=== PATIENT | male | born 1960 | race Caucasian/White ===

== ENCOUNTER 2020-03-23 04:35 | Emergency (ER) | payer BC ==
[~2020-03-23] VITALS: Ht 165.1 cm; Wt 80.3 kg
[2020-03-23 04:43] VITALS: BP 126/72
--- NOTE | 2020-03-23 04:49 | NUR ---
PT NEGATIVE COVID SCREE. PT WEARING MASK. TRIAGE NURSE WEARING PPE.
--- NOTE | 2020-03-23 04:49 | NUR ---
PT TAKEN TO BED 4
--- NOTE | 2020-03-23 04:52 | NUR ---
DR. HERNANDEZ AT BEDSIDE.
[2020-03-23] MEDS: HYDROcodone/APAP 5/325 MG 1 TAB TAB PO ONE (05:05)
[2020-03-23] MEDS: KETOROLAC 30 MG/ML VIAL IM ONE (05:07)
--- NOTE | 2020-03-23 05:10 | NUR ---
DX BY 5/2 WITH GOUT TO L BIG TOE AND PRESCRIBED MEDS, PAIN GOT WORSE LAST NIGHT AND IT HAS TRAVELED TO HIS ANKLE AND LOWER LEFT. UNABLE TO PUT PRESSURE ON LEFT FOOT. LEFT BIG TOE AND FOOT RED, SWOLLEN, AND WARM TO TOUCH. [facility] MED HX - GOUT, DIABETES (STATES NO LONGER DIABETIC) MEDS - PREDNISONE, INDOMETACIN, KEFLEX
[2020-03-23 05:25] VITALS: BP 126/72
--- NOTE | 2020-03-23 05:25 | NUR ---
Patient discharged with v/s stable. Written and verbal after care instructions given and explained. Patient alert, oriented and verbalized understanding of instructions. Ambulating with crutches. All questions addressed prior to discharge. ID band removed. Patient advised to follow up with PMD. Rx of naprosyn and norco given. Patient educated on indication of medication including possible reaction and side effects. Opportunity to ask questions provided and answered.
== END 2020-03-23 05:25 | disposition home or self-care (01) ==
LOC: MED 04:35
DX: M10.9 Gout, unspecified (principal)
CPT/HCPCS: 96372; 99283; J1885